=== PATIENT | female | born 1935 | race Caucasian/White ===

== ENCOUNTER 2017-07-20 21:31 | Emergency (ER) | payer MEDICARE ==
[~2017-07-20] VITALS: Ht 165.1 cm; Wt 61.2 kg
[~2017-07-20 21:31] MED LIST: ALENDRONATE SOD70 MG PO; CRESTOR10 MG PO; LEVOTHYROXINE75 MCG PO; LIOTHYRONINE SO5 MCG PO; LISINOPRIL10 MG PO; METOPROLOL TART25 MG PO; WARFARIN SODIUM2 MG PO
[2017-07-20 22:28] LABS: BASOPHILS % 0.2 % (0.0-1.0); EOSINOPHILS # (AUTO) 0.1 (0.0-0.4); HEMATOCRIT 32.9 % (34.2-44.1); HEMOGLOBIN 10.3 g/dL (12.0-16.0); LYMPHOCYTES # (AUTO) 1.9 (1.0-3.2); LYMPHOCYTES % 19.8 % (18.0-39.1); MEAN CORPUSCULAR HEMOGLOBIN 28.1 pg (28-32); MEAN CORPUSCULAR HGB CONC 31.3 g/dL (31-35); MEAN CORPUSCULAR VOLUME 89.6 fL (81-99); MONOCYTES # (AUTO) 0.7 (0.2-0.8); MONOCYTES % 7.3 % (4.4-11.3); NEUTROPHILS % 71.4 % (38.7-80.0); PLATELET COUNT 178 x10e3/uL (140-360); RED BLOOD COUNT 3.67 x10e6/uL (3.6-5.1); RED CELL DISTRIBUTION WIDTH 15.3 % (11.7-14.4)
[2017-07-20 22:48] LABS: ALBUMIN 3.4 g/dL (3.5-5.0); ALBUMIN/GLOBULIN RATIO 1.1 (0.8-2.0); ANION GAP 11.9 mmol/L (8-16); CALCIUM 9.2 mg/dL (8.4-10.2); CREATININE, SERUM 1.23 mg/dL (0.57-1.11); POTASSIUM 3.9 mmol/L (3.5-5.1)
[2017-07-20 23:03] LABS: CREATINE KINASE MB 2.1 ng/mL (0-5.0)
--- NOTE | 2017-07-20 23:48 | Diagnostic Imaging Report ---
EXAMINATION: CHEST SINGLE (PORTABLE) INDICATION: Chest pain COMPARISON: 09/21/2016 FINDINGS: TUBES and LINES: None. LUNGS: Lungs are not well inflated. There are bibasilar atelectasis. There is mild prominence of the central pulmonary vasculature, consistent with pulmonary venous congestion. PLEURA: No pleural effusion or pneumothorax. HEART AND MEDIASTINUM: Cardiac size is mildly enlarged. There are atherosclerotic calcifications within the aorta. BONES AND SOFT TISSUES: No acute osseous lesion. Degenerative changes of the bilateral glenohumeral joints Soft tissues are unremarkable. UPPER ABDOMEN: No free air under the diaphragm. IMPRESSION: No acute thoracic abnormality. Signed by: Dr. Reji Suh M.D. on 07/20/2017 11:45 PM
[2017-07-21] MEDS ORDERED: SODIUM CHLORIDE 0.9% 500ML 500 ML IV ONE (00:15)
[2017-07-21] MEDS ORDERED: SODIUM CHLORIDE 0.9% 50ML 50 ML ONE (01:10)
[2017-07-21] MEDS ORDERED: IOPAMIDOL 370 MG/ML 200 ML INFUS..BTL INJ ONE (01:11)
--- NOTE | 2017-07-21 01:39 | Diagnostic Imaging Report ---
EXAM: CT Chest WITH contrast 07/21/2017 12:04 AM INDICATION: Pulmonary embolism protocol COMPARISON: Chest x-ray on 07/20/2017 TECHNIQUE: Chest was scanned utilizing a multidetector helical scanner from the lung apex through the level of the adrenal glands without administration of IV contrast. Coronal and sagittal reformations were obtained. Pulmonary embolism protocol was performed. IV CONTRAST: 70 mL of Isovue-370 RADIATION DOSE: Total DLP: 543.12 mGy*cm Estimated effective dose: (DLP x 0.014 x size factor) mSv COMPLICATIONS: None FINDINGS: LINES/ TUBES: None. LUNGS AND AIRWAYS: The lungs are unremarkable. Airways are normal. PLEURA: The pleural spaces are clear. HEART AND MEDIASTINUM: The thyroid gland is normal. No mediastinal, hilar or axillary lymphadenopathy. The heart is moderately enlarged. There is predominantly left atrial dilatation. Patient is status post CABG procedure There is no pericardial effusion. There are moderate atherosclerotic calcifications in the aorta and coronary arteries. The pulmonary artery measures 2.5 cm in maximum dimension, within normal limits. UPPER ABDOMEN: Limited non-contrast views of the upper abdomen show no abnormality within the visualized liver, spleen, pancreas, or kidneys. The adrenal glands are normal. BONES: There are degenerative changes in the thoracic spine. SOFT TISSUES: Unremarkable. IMPRESSION: 1. Cardiomegaly and evidence of extensive coronary artery disease in this patient is status post CABG procedure. 2. No evidence of pulmonary embolism on today's exam. Signed by: Dr. Reji Suh M.D. on 07/21/2017 1:36 AM
== END 2017-07-21 02:34 | disposition home or self-care (01) ==
LOC: ER 21:31
DX: R07.89 Other chest pain (principal); I10 Essential (primary) hypertension; I48.91 Unspecified atrial fibrillation; E78.5 Hyperlipidemia, unspecified; I25.2 Old myocardial infarction
CPT/HCPCS: 36415; 71045; 71260; 80053; 82550; 82553; 84484; 85025; 85379; 93005; 99284; J7040; Q9967

== ENCOUNTER 2017-08-23 14:03 | Inpatient (IN) | payer MEDICARE ==
[~2017-08-23] VITALS: Ht 165.1 cm; Wt 61.2 kg
[2017-08-23] MEDS ORDERED: PANTOPRAZOLE 40 MG 10ML VIAL IV STA (14:46)
[2017-08-23] MEDS ORDERED: SODIUM CHLORIDE 0.9% 500ML 500 ML IV STA (14:46)
--- NOTE | 2017-08-23 15:23 | Diagnostic Imaging Report ---
PROCEDURE: A single AP view of the chest. COMPARISON: Chest radiograph 07/20/2017, chest CT 07/21/2017 INDICATIONS: ACID REFLUX 2 WEEKS FINDINGS: Lines/tubes: None. Lungs: The lungs are well inflated and clear. Central pulmonary venous congestion. There is no evidence of pneumonia or pulmonary edema. Pleura: There is no pleural effusion or pneumothorax. Heart and mediastinum: Stable mild enlargement of the cardiac silhouette. Aortic calcifications. Bones: No acute bony abnormality. Median sternotomy wires. Upper abdomen: No free air under the diaphragm. IMPRESSION: No acute cardiopulmonary disease. Dictated by: Vu Layne M.D. on 08/23/2017 at 15:26 Electronically approved by: Vu Layne M.D. on 08/23/2017 at 15:26
[2017-08-23 15:45] LABS: BASOPHILS % 0.1 % (0.0-1.0); EOSINOPHILS % 0.3 % (0.0-6.0); HEMATOCRIT 35.7 % (34.2-44.1); HEMOGLOBIN 11.3 g/dL (12.0-16.0); LYMPHOCYTES # (AUTO) 1.6 (1.0-3.2); LYMPHOCYTES % 13.6 % (18.0-39.1); MEAN CORPUSCULAR HEMOGLOBIN 27.8 pg (28-32); MEAN CORPUSCULAR HGB CONC 31.7 g/dL (31-35); MEAN CORPUSCULAR VOLUME 87.9 fL (81-99); MONOCYTES # (AUTO) 0.8 (0.2-0.8); MONOCYTES % 6.7 % (4.4-11.3); NEUTROPHILS # (AUTO) 9.4 (2.1-6.9); NEUTROPHILS % 78.8 % (38.7-80.0); PLATELET COUNT 175 x10e3/uL (140-360); RED BLOOD COUNT 4.06 x10e6/uL (3.6-5.1); RED CELL DISTRIBUTION WIDTH 15.7 % (11.7-14.4)
[2017-08-23 15:57] LABS: INR 1.77; PROTHROMBIN TIME 19.4 seconds (11.9-14.5)
[2017-08-23 15:58] LABS: PARTIAL THROMBOPLASTIN TIME 26.2 seconds (23.8-35.5)
[2017-08-23 16:08] LABS: ALBUMIN 3.6 g/dL (3.5-5.0); ANION GAP 15.4 mmol/L (8-16); CALCIUM 9.6 mg/dL (8.4-10.2); CREATININE, SERUM 1.45 mg/dL (0.57-1.11); MAGNESIUM 1.9 MG/DL (1.3-2.1); POTASSIUM 4.4 mmol/L (3.5-5.1)
[2017-08-23 16:15] LABS: CREATINE KINASE MB 6.9 ng/mL (0-5.0)
[2017-08-23] MEDS ORDERED: ENOXAPARIN SOD INJ 60 MG/0.6 ML SYR SC STA (16:35)
[2017-08-23] MEDS ORDERED: ASPIRIN 81 MG CHEW TAB PO ONE (16:45)
[2017-08-23] MEDS ORDERED: NITROGLYCERIN 0.4 MG SUBL SL PRN (16:45)
[2017-08-23 17:51] LABS: BILIRUBIN,URINE NEGATIVE (NEGATIVE); CLARITY,URINE HAZY (CLEAR); COLOR,URINE YELLOW (YELLOW); KETONES,URINE NEGATIVE (NEGATIVE); LEUKOCYTE ESTERASE ,URINE 1+ (NEGATIVE); NITRITE,URINE NEGATIVE (NEGATIVE); PROTEIN,URINE DIPSTICK TRACE (NEGATIVE); URINE UROBILINOGEN 0.2 mg/dL (0.2 - 1)
[2017-08-23 18:13] LABS: BACTERIA,URINE RARE /HPF; EPITHELIAL CELLS,URINE FEW /LPF; MUCUS,URINE FEW (RARE); RBC,URINE 0-5 /HPF (0-5)
[2017-08-23] MEDS ORDERED: ENOXAPARIN SOD INJ 60 MG/0.6 ML SYR SC ONE (19:48)
[2017-08-23] MEDS: FAMOTIDINE 20 MG TAB PO SCH (19:52)
[2017-08-23] MEDS: SIMVASTATIN 20 MG TAB PO SCH (22:37)
[2017-08-24] VITALS (33 sets, daily range): BP systolic 88–123; BP diastolic 50–78
[2017-08-24 00:07] LABS: CREATINE KINASE MB 6.4 ng/mL (0-5.0)
[2017-08-24] MEDS ORDERED: ACETAMINOPHEN 325 MG TAB ONE (00:26)
[2017-08-24 05:35] LABS: BASOPHILS % 0.1 % (0.0-1.0); EOSINOPHILS % 0.3 % (0.0-6.0); HEMATOCRIT 30.7 % (34.2-44.1); HEMOGLOBIN 9.7 g/dL (12.0-16.0); LYMPHOCYTES # (AUTO) 1.6 (1.0-3.2); LYMPHOCYTES % 18.7 % (18.0-39.1); MEAN CORPUSCULAR HEMOGLOBIN 27.9 pg (28-32); MEAN CORPUSCULAR HGB CONC 31.6 g/dL (31-35); MEAN CORPUSCULAR VOLUME 88.2 fL (81-99); MONOCYTES # (AUTO) 0.6 (0.2-0.8); MONOCYTES % 6.4 % (4.4-11.3); NEUTROPHILS # (AUTO) 6.4 (2.1-6.9); PLATELET COUNT 153 x10e3/uL (140-360); RED BLOOD COUNT 3.48 x10e6/uL (3.6-5.1); RED CELL DISTRIBUTION WIDTH 15.9 % (11.7-14.4)
[2017-08-24] MEDS ORDERED: CEFTRIAXONE SOD 1 GM VIAL ONE (05:56)
[2017-08-24] MEDS: CEFTRIAXONE SOD 1 GM VIAL IV SCH (06:00)
[2017-08-24] MEDS ORDERED: ALENDRONATE SODIUM 70 MG TAB PO SCH (06:00)
[2017-08-24 06:15] LABS: ALBUMIN 3.1 g/dL (3.5-5.0); ANION GAP 13.8 mmol/L (8-16); CALCIUM 8.6 mg/dL (8.4-10.2); CHOL/HDL RATIO 3.8 (3.0-3.6); CREATININE, SERUM 1.36 mg/dL (0.57-1.11); POTASSIUM 4.8 mmol/L (3.5-5.1)
[2017-08-24 07:40] LABS: CREATINE KINASE MB 7.9 ng/mL (0-5.0)
[2017-08-24] MEDS: LISINOPRIL 10 MG TAB PO SCH ×2 (08:36→17:00)
[2017-08-24] MEDS: FAMOTIDINE 20 MG TAB PO SCH ×3 (08:36→23:39)
[2017-08-24] MEDS: ASPIRIN 325 MG TAB EC PO SCH (08:36)
[2017-08-24] MEDS: METOPROLOL TARTRATE 25 MG TAB PO SCH (08:36)
[2017-08-24] MEDS: LEVOTHYROXINE SODIUM 75 MCG TAB PO SCH (08:36)
--- NOTE | 2017-08-24 08:44 | Consultation ---
DATE OF CONSULTATION: August 24, 2017 CARDIOLOGY CONSULTATION REASON FOR CONSULTATION: NSTEMI. HPI: This is a pleasant 81-year-old female that presented with chest pain. According to the patient, for the last 2 months she has been having chest pain with burning sensation that comes and go. She stated in July she was in the ER with chest pain and she was discharged home later the same day. She stated yesterday the chest was severe starting on the center of the chest on a scale of 10/10 and radiating to the neck and jaw that she presented to the emergency room for evaluation. She has a history of CAD and AFib, and has been anticoagulated with Coumadin. She denies any palpitation, any dizziness, any shortness of breath, any diaphoresis, or headache. Troponin was positive. EKG showed no S/T abnormalities. PAST MEDICAL HISTORY: CAD, hypertension, AFib, GI bleed, diverticulosis, arthritis, hypothyroidism, chronic back pain, neuropathy, hyperlipidemia, and sciatica. PAST SURGICAL HISTORY: Appendectomy, cholecystectomy, hysterectomy, CABG, tonsillectomy. FAMILY HISTORY: Positive for CAD. SOCIAL HISTORY: No smoking. No drinking. She lives at a senior apartment. MEDICATIONS: See med list. ALLERGIES: SHE IS ALLERGIC TO TRAMADOL. REVIEW OF SYSTEMS: Negative except as mentioned above. PHYSICAL EXAMINATION VITAL SIGNS: Temperature 98, heart rate 74, blood pressure 130/76, respiration 18, oxygen saturation 98% on room. GENERAL: She is awake, alert and oriented times 3. HEENT: Mucous membrane moist. NECK: Supple. LUNGS: Bilateral clear to auscultation. CARDIOVASCULAR: S1 and S2 present. ABDOMEN: Nontender. NEUROLOGICAL: Intact. EXTREMITIES: With no edema. LABS: Sodium 138, potassium 4.8, chloride 111, CO2 18, BUN 40, creatinine 1.36, glucose 94. White blood cells 8.71, hemoglobin 9.7, hematocrit 30.7, and platelets 153,000. PT 19.4, PTT 26.2 and INR 1.77. IMPRESSION 1. Bsm-SZ-wyylmpd elevation myocardial infarction. 2. History of atrial fibrillation. 3. Hypertension. 4. Coronary artery disease. 5. Hypothyroidism. 6. History of arthritis. ASSESSMENT AND PLAN 1. Troponin times 3 was positive. Will go ahead and set her up for cardiac catheterization this afternoon. Risks and benefits explained to her and family at the bedside, and they all agreed. 2. Will keep her n.p.o. and get consent and also echocardiogram to assess the LV and the valve function. Further cardiac workup pending clinical course. Thank you for this consultation. DICTATED BY ILYA BOWMAN NP Job#: [id number] [place] MTDD
[2017-08-24] MEDS: LIOTHYRONINE SODIUM 5 MCG TAB PO SCH (08:50)
[2017-08-24] MEDS: SIMVASTATIN 40 MG TAB PO SCH (09:00)
--- NOTE | 2017-08-24 10:45 | History and Physical ---
The patient was found to have a oic-SN-esofjju elevation CA. She is currently symptom free. She is being admitted for further evaluation and treatment. PAST MEDICAL HISTORY: Significant for coronary artery disease, 5-vessel bypass in 1986, hyperlipidemia, hypertension. MEDICATIONS: See MAY. ALLERGIES: SEE MAY. SOCIAL: Nonsmoker and nondrinker. Lives at home. FAMILY HISTORY: Hypertension. PHYSICAL EXAMINATION VITALS: Temperature is 98.6, blood pressure 125/76, pulse 74, sats 98%. GENERAL: No apparent distress. Lying in bed. NECK: Supple. CARDIOVASCULAR: Regular rate and rhythm. LUNGS: Clear to auscultation bilaterally. ABDOMEN: Good bowel sounds. Soft and nontender. EXTREMITIES: No clubbing or cyanosis. NEUROLOGICAL: Nonfocal. ASSESSMENT AND PLAN 1. Vqg-RN-mjyznec elevation myocardial infarction: Will continue with current care. Cardiology has been consulted. 2. Chronic kidney disease, stage 3: Currently stable. Continue to monitor. 3. Coronary artery disease: Continue with her medications. 4. Hyperlipidemia: Continue with Crestor. 5. Hypertension: Continue with her medications. Please see hospital chart for full details. Job#: [id number] [place]
[2017-08-24] MEDS ORDERED: IOPAMIDOL 370 MG/ML 200 ML INFUS..BTL INJ ONE ×3 (12:35→14:29)
[2017-08-24] MEDS ORDERED: LIDOCAINE HCL 2% LOCAL 20 ML VIAL ONE (12:35)
[2017-08-24] MEDS ORDERED: HEPARIN SOD/SOD CHLORIDE 2,000 ML ONE (12:35)
[2017-08-24] MEDS ORDERED: SODIUM CHLORIDE 0.9% 500ML 500 ML IV ONE (12:39)
[2017-08-24] MEDS ORDERED: SODIUM CHLORIDE 0.9% 250ML 250 ML ONE ×2 (12:41→14:12)
[2017-08-24] MEDS ORDERED: FENTANYL CITRATE/PF 100MCG/2 ML INJ ONE (13:25)
[2017-08-24] MEDS ORDERED: MIDAZOLAM HCL 2 MG/2 ML VIAL ONE (13:25)
[2017-08-24] MEDS ORDERED: SODIUM CHLORIDE 0.9% 100 ML 0 ML ONE (14:11)
[2017-08-24] MEDS ORDERED: BIVALIRUDIN 250 MG/VIAL IV ONE ×2 (14:11→14:28)
[2017-08-24] MEDS ORDERED: SODIUM CHLORIDE 0.9% 50ML 50 ML ONE (14:29)
[2017-08-24] MEDS ORDERED: MORPHINE SULFATE 2 MG/ML SYR IV STA (16:07)
[2017-08-24] MEDS ORDERED: PANTOPRAZOLE SOD 40 MG TABEC PO ONE (16:15)
[2017-08-24] MEDS ORDERED: PANTOPRAZOLE SOD 40 MG TABEC ONE (16:27)
[2017-08-24] MEDS: MORPHINE SULFATE 2 MG/ML SYR IV PRN (17:52)
[2017-08-24] MEDS ORDERED: MORPHINE SULFATE INJ 4 MG/ML INJ ONE (17:53)
[2017-08-24] MEDS ORDERED: MORPHINE SULFATE INJ 4 MG/ML INJ IV PRN (18:00)
[2017-08-24] MEDS ORDERED: ONDANSETRON HCL INJ 2 MG/ML VIAL IV PRN (18:00)
[2017-08-24] MEDS: SIMVASTATIN 20 MG TAB PO SCH (20:37)
--- NOTE | 2017-08-24 21:12 | Operative Report ---
DATE OF PROCEDURE: August 24, 2017 PROCEDURES PERFORMED: 1. Left heart catheterization. 2. Selective coronary angiogram. 3. Graft injection. 4. Attempted PCI of saphenous vein graft to the diagonal branch. INDICATIONS: Bxo-AH-vonswdsqg ND. ANESTHESIA: Fentanyl and 2% lidocaine for local anesthesia. ESTIMATED BLOOD LOSS: 8 mL. DESCRIPTION OF PROCEDURE: After informed consent, patient was brought to the cardiac catheterization laboratory and placed on the table. Both groins were painted and draped in a sterile fashion. Lidocaine injected in the right groin for local anesthesia. Right femoral artery was accessed by Seldinger technique, and a 5-Palestinian sheath was placed in right femoral artery. Left main artery was cannulated using a JL4 5-Palestinian catheter. Coronary angiogram was performed and images obtained in multiple views. Right coronary artery was cannulated using a 3DRC 5-Palestinian catheter and coronary angiogram was performed and images obtained in multiple views. The saphenous vein graft to the diagonal and the LAD which is a jump graft was cannulated using the same 3DRC catheter. Coronary angiogram was performed. Images obtained in multiple views. The saphenous vein graft to the right coronary artery was cannulated using an LCB catheter. Coronary angiogram was performed and images obtained in multiple views. The OBRIEN was sub-selectively catheterized using a OBRIEN 4-Palestinian catheter. This catheter was exchanged over a Wooly wire. The OBRIEN was atretic. After reviewing the images, it was decided to attempy intervention on the 99% calcified lesion in the saphenous vein graft to the diagonal branch. The 5-Palestinian sheath was exchanged for a 6-Palestinian sheath over a guidewire. LCB 6-Palestinian guide was advanced through the sheath and cannulated the saphenous vein graft to the left circumflex. Coronary angiogram was performed and images obtained in multiple views. Subsequently, the saphenous vein graft to the diagonal/LAD was cannulated using LCB 6-Palestinian guide. Initially Prowater wire was advanced. However, it was decided to remove the Prowater wire and put in a FilterWire due the calcific lesion. The FilterWire was advanced through the sheath beyond the 99% lesion. However, no flow was obtained due to the severe calcification of the lesion, severe stenosis, and the FilterWire could not be advanced beyond the mid segment of the graft. So, it was decided not to proceed with this high risk intervention. Patient was initially given Angiomax which was stopped. Subsequent images showed good flow through the graft. Patient tolerated the procedure without any complications. REPORT: LEFT MAIN: Is a small vessel that appears to be severely diseased. . LEFT ANTERIOR DESCENDING: Appears to be totally occluded at its origin. LEFT CIRCUMFLEX: Narrow caliber vessel is diffusely diseased throughout its course with about a 80% to 90% proximal lesion. RIGHT CORONARY ARTERY: Narrow caliber diffusely diseased and totally occluded in its mid segment. SAPHENOUS VEIN GRAFT TO THE RIGHT CORONARY ARTERY: Is diffusely diseased but patent. SAPHENOUS VEIN GRAFT TO THE OM/CIRC: Is diffusely diseased and is patent. SAPHENOUS VEIN GRAFT TO THE DIAGONAL/LAD: Has a 99% proximal lesion which appears to be severely calcified. OBRIEN - is atretic PLAN: Medical management versus high risk PCI. Job#: [id number] [place] MTDD
[2017-08-25] VITALS (72 sets, daily range): BP systolic 64–131; BP diastolic 45–87
[2017-08-25] MEDS: CEFTRIAXONE SOD 1 GM VIAL IV SCH (05:39)
[2017-08-25 06:06] LABS: BASOPHILS % 0.1 % (0.0-1.0); EOSINOPHILS % 0.2 % (0.0-6.0); HEMATOCRIT 33.1 % (34.2-44.1); HEMOGLOBIN 10.2 g/dL (12.0-16.0); LYMPHOCYTES # (AUTO) 1.3 (1.0-3.2); LYMPHOCYTES % 13.2 % (18.0-39.1); MEAN CORPUSCULAR HEMOGLOBIN 27.3 pg (28-32); MEAN CORPUSCULAR HGB CONC 30.8 g/dL (31-35); MEAN CORPUSCULAR VOLUME 88.5 fL (81-99); MONOCYTES # (AUTO) 0.9 (0.2-0.8); MONOCYTES % 8.4 % (4.4-11.3); NEUTROPHILS # (AUTO) 7.8 (2.1-6.9); PLATELET COUNT 156 x10e3/uL (140-360); RED BLOOD COUNT 3.74 x10e6/uL (3.6-5.1); RED CELL DISTRIBUTION WIDTH 16.1 % (11.7-14.4)
[2017-08-25 06:09] LABS: INR 1.99; PROTHROMBIN TIME 21.2 seconds (11.9-14.5)
[2017-08-25 06:10] LABS: PARTIAL THROMBOPLASTIN TIME 32.4 seconds (23.8-35.5)
[2017-08-25 06:35] LABS: ALBUMIN 3.2 g/dL (3.5-5.0); ANION GAP 15.8 mmol/L (8-16); CALCIUM 8.6 mg/dL (8.4-10.2); CREATININE, SERUM 1.32 mg/dL (0.57-1.11); POTASSIUM 4.8 mmol/L (3.5-5.1)
[2017-08-25] MEDS: PANTOPRAZOLE SOD 40 MG TABEC PO SCH (08:46)
[2017-08-25] MEDS: LEVOTHYROXINE SODIUM 75 MCG TAB PO SCH (08:46)
[2017-08-25] MEDS: LIOTHYRONINE SODIUM 5 MCG TAB PO SCH (08:46)
[2017-08-25] MEDS: FAMOTIDINE 20 MG TAB PO SCH ×2 (08:46→16:30)
[2017-08-25] MEDS: ASPIRIN 325 MG TAB EC PO SCH (08:47)
[2017-08-25] MEDS: METOPROLOL TARTRATE 25 MG TAB PO SCH (09:00)
[2017-08-25] MEDS: LISINOPRIL 10 MG TAB PO SCH ×2 (09:00→17:00)
[2017-08-25] MEDS: MORPHINE SULFATE 2 MG/ML SYR IV PRN ×3 (12:59→22:16)
[2017-08-25] MEDS: SIMVASTATIN 40 MG TAB PO SCH (19:53)
[2017-08-25] MEDS: ACETAMINOPHEN 325 MG TAB PO PRN (20:06)
[2017-08-25] MEDS: SIMVASTATIN 20 MG TAB PO SCH ×2 (20:06→21:00)
[2017-08-26] VITALS (30 sets, daily range): BP systolic 84–129; BP diastolic 52–86
[2017-08-26] MEDS: CEFTRIAXONE SOD 1 GM VIAL IV SCH (06:05)
[2017-08-26] MEDS: LISINOPRIL 10 MG TAB PO SCH ×2 (09:00→17:00)
[2017-08-26] MEDS: METOPROLOL TARTRATE 25 MG TAB PO SCH (09:00)
[2017-08-26] MEDS: LIOTHYRONINE SODIUM 5 MCG TAB PO SCH (09:10)
[2017-08-26] MEDS: ASPIRIN 325 MG TAB EC PO SCH (09:10)
[2017-08-26] MEDS: LEVOTHYROXINE SODIUM 75 MCG TAB PO SCH (09:10)
[2017-08-26] MEDS: FAMOTIDINE 20 MG TAB PO SCH ×2 (09:10→17:45)
[2017-08-26] MEDS: PANTOPRAZOLE SOD 40 MG TABEC PO SCH (09:10)
[2017-08-26] MEDS: SIMVASTATIN 20 MG TAB PO SCH (21:00)
[2017-08-26] MEDS: ACETAMINOPHEN 325 MG TAB PO PRN (23:49)
[2017-08-27 00:04] VITALS: BP 102/70
[2017-08-27] MEDS ORDERED: ALENDRONATE SODIUM 70 MG TAB PO SCH (06:00)
[2017-08-27] MEDS ORDERED: LEVOTHYROXINE SODIUM 75 MCG TAB PO SCH (06:00)
== END 2017-08-27 01:40 | disposition short-term general hospital (02) | DRG 251 ==
LOC: ER 14:03 → ERHOLD 17:39 → CATH LAB V 08-24 15:53 → ICU 08-24 17:13 → IMCU 08-26 16:43
PROVIDERS: ADMIT Internal Medicine; ATTEND Internal Medicine
PROC: 4A023N7 Measurement of Cardiac Sampling and Pressure, Left Heart, Percutaneous Approach (ICD-10-PCS; principal; 2017-08-23)
PROC: 02703ZZ Dilation of Coronary Artery, One Artery, Percutaneous Approach (ICD-10-PCS; 2017-08-23)
PROC: B2121ZZ Fluoroscopy of Single Coronary Artery Bypass Graft using Low Osmolar Contrast (ICD-10-PCS; 2017-08-23)
PROC: B2181ZZ Fluoroscopy of Left Internal Mammary Bypass Graft using Low Osmolar Contrast (ICD-10-PCS; 2017-08-23)
PROC: B2111ZZ Fluoroscopy of Multiple Coronary Arteries using Low Osmolar Contrast (ICD-10-PCS; 2017-08-23)
DX: I21.4 Non-ST elevation (NSTEMI) myocardial infarction (principal); I25.810 Atherosclerosis of coronary artery bypass graft(s) without angina pectoris; I12.9 Hypertensive chronic kidney disease with stage 1 through stage 4 chronic kidney disease, or unspecified chronic kidney disease; N18.3 Chronic kidney disease, stage 3 (moderate); Z95.1 Presence of aortocoronary bypass graft; I48.91 Unspecified atrial fibrillation; Z79.01 Long term (current) use of anticoagulants; I25.84 Coronary atherosclerosis due to calcified coronary lesion; K21.9 Gastro-esophageal reflux disease without esophagitis; G62.9 Polyneuropathy, unspecified; Z79.899 Other long term (current) drug therapy
CPT/HCPCS: 36415; 71045; 80053; 80061; 81001; 82150; 82550; 82553; 83690; 83735; 83880; 84484; 85025; 85610; 85730; 87086; 93005; 93306; 93455; 99284; J0583; J0696; J1650; J2001; J2250; J2270; J2405; J7040; J7050; Q9967